=== PATIENT | female | born 1975 | race Two or more races ===

== ENCOUNTER 2022-11-03 18:06 | Emergency (ER) | payer OTHER ==
[~2022-11-03] VITALS: Ht 165.1 cm; Wt 84.8 kg
[2022-11-03] MEDS ORDERED: METFORMIN HCL1000 M2 PO (18:41)
[2022-11-03] MEDS ORDERED: GLIMEPIRIDE1 MG PO (18:41)
[2022-11-03] MEDS ORDERED: ZESTRIL20 MG PO (18:42)
[2022-11-03] MEDS ORDERED: LIPITOR20 MG PO (18:42)
[2022-11-03] MEDS ORDERED: NAPROXEN500 MG PO (22:45)
[2022-11-03] MEDS ORDERED: BACTRIM DS TAB1 EACH PO (22:45)
== END 2022-11-03 23:01 | disposition home or self-care (01) ==
LOC: ER 18:06
PROVIDERS: General Practice
DX: R10.9 Unspecified abdominal pain (principal); E11.9 Type 2 diabetes mellitus without complications; Z79.84 Long term (current) use of oral hypoglycemic drugs; I10 Essential (primary) hypertension; N39.0 Urinary tract infection, site not specified; N20.0 Calculus of kidney

== ENCOUNTER 2024-03-01 08:40 | Emergency (ER) | payer OTHER ==
[~2024-03-01] VITALS: Ht 157.5 cm; Wt 77.1 kg
[~2024-03-01 08:40] MED LIST: BACTRIM DS TAB1 EACH PO; GLIMEPIRIDE1 MG PO; LIPITOR20 MG PO; METFORMIN HCL1000 M2 PO; NAPROXEN500 MG PO; ZESTRIL20 MG PO
[2024-03-01 08:50] VITALS: BP 150/90; O2SAT 100
[2024-03-01] MEDS ORDERED: HYDRALAZINE HCL10 MG (08:56)
[2024-03-01] MEDS ORDERED: ONDANSETRON HCL 2 MG/ML VIAL IV STA (09:17)
[2024-03-01] MEDS ORDERED: 0.9 % SODIUM CHLORIDE 1,000 ML IV STA (09:21)
[2024-03-01] MEDS ORDERED: FAMOtidine 10 MG/ML (4ML VIAL) IV STA (09:21)
[2024-03-01] MEDS ORDERED: ONDANSETRON HCL 2 MG/ML VIAL ONE (09:33)
[2024-03-01] MEDS ORDERED: FAMOTIDINE/PF 20 MG/2 ML VIAL ONE (09:33)
[2024-03-01 09:54] LABS: HEMOGLOBIN 11.6 g/dL (12.0-15.00); MEAN CELL VOLUME 90.2 fL (80.00-100.00); MEAN CORPUSCULAR HEMOGLOBIN 30.7 pg (27.00-32.0); PLATELET COUNT 206 K/uL (150-450); RED BLOOD COUNT 3.77 M/uL (4.00-6.00); RED CELL DISTRIBUTION WIDTH 13.4 % (11.5-14.5)
[2024-03-01 10:23] LABS: ALBUMIN 4.1 gm/dL (3.4-5.0); BILIRUBIN TOTAL 0.51 mg/dL (0.3-1.2); BILIRUBIN,CONJUGATED 0.14 mg/dL (0.0-0.2); BILIRUBIN,UNCONJUGATED 0.37 mg/dL (0.0-0.6); CALCIUM 9.7 mg/dL (8.5-10.1); CREATININE SERUM 1.17 mg/dL (0.55-1.02); GFR 49.16; POTASSIUM 4.17 mEq/L (3.5-5.1); TOTAL PROTEIN 8.2 gm/dL (6.4-8.2)
[2024-03-01 15:33] LABS: PH,URINE 5.5 (5.0-8.0); URINE APPEARANCE Cloudy; URINE BILIRRUBIN Negative (NEGATIVE); URINE BLOOD Negative; URINE COLOR Yellow; URINE GLUCOSE Negative (NEGATIVE); URINE KETONE 15 (NEGATIVE); URINE LEUKOCYTE Trace; URINE NITRATE Negative; URINE PROTEIN 30 (NEGATIVE); URINE UROBILINOGEN 0.2 E.U./dl
[2024-03-01 15:36] LABS: URINE BACTERIA 7163.7 uL (0.0-1933); URINE EPITHELIAL CELLS 120.4 uL (0.0-38.8); URINE RBC 7.2 uL (0.0-20.8); URINE WBC 97.2 uL (0.0-23.2)
[2024-03-01 15:58] LABS: URINE CAST 0.58 uL (0.0-1.40)
[2024-03-01 15:59] LABS: URINE CRYSTALS MANY /HPF; URINE MUCUS SCANT
[2024-03-01] MEDS ORDERED: CEFTRIAXONE SODIUM 1,000 MG VIAL IV STA (16:05)
[2024-03-01] MEDS ORDERED: DICYCLOMINE HCL 20 MG TABLET PO ONE (16:45)
[2024-03-01] MEDS ORDERED: KETOROLAC TROMETHAMINE 60 MG VIAL IM ONE ×2 (16:45→17:27)
[2024-03-01] MEDS ORDERED: CEFTRIAXONE SODIUM 1,000 MG VIAL ONE (17:27)
[2024-03-01] MEDS ORDERED: DICYCLOMINE HCL 10 MG CAPSULE PO ONE (17:27)
[2024-03-01] MEDS ORDERED: PEPCID AC20 MG PO (20:45)
[2024-03-01] MEDS ORDERED: ZOFRAN8 MG PO (20:45)
[2024-03-01] MEDS ORDERED: BACTRIM DS TAB1 EACH PO (20:45)
[2024-03-01] MEDS ORDERED: DOLOGESIC-DF 51 EACH PO (20:45)
[2024-03-01] MEDS ORDERED: TAMS0.4C PO (20:45)
== END 2024-03-01 21:54 | disposition home or self-care (01) ==
LOC: ER 08:42
PROVIDERS: General Practice
DX: R11.10 Vomiting, unspecified (principal); E86.0 Dehydration; I10 Essential (primary) hypertension; E11.9 Type 2 diabetes mellitus without complications; Z79.84 Long term (current) use of oral hypoglycemic drugs

== ENCOUNTER 2024-06-24 09:32 | Emergency (ER) | payer OTHER ==
[~2024-06-24 09:32] MED LIST changes: +DOLOGESIC-DF 51 EACH PO; +HYDRALAZINE HCL10 MG; +PEPCID AC20 MG PO; +TAMS0.4C PO; +ZOFRAN8 MG PO
[2024-06-24] MEDS ORDERED: FAMOTIDINE/PF 20 MG/2 ML VIAL IV ONE (11:30)
[2024-06-24] MEDS ORDERED: 0.9 % SODIUM CHLORIDE 1,000 ML IV SCH (11:45)
[2024-06-24] MEDS ORDERED: FAMOTIDINE/PF 20 MG/2 ML VIAL ONE (12:01)
[2024-06-24 13:10] LABS: HEMATOCRIT 35.5 % (36.0-45.00); HEMOGLOBIN 12.1 g/dL (12.0-15.00); MEAN CELL VOLUME 90.4 fL (80.00-100.00); MEAN CORPUSCULAR HEMOGLOBIN 30.9 pg (27.00-32.0); MEAN CORPUSCULAR HGB CONC 34.2 g/dl (32.0-36.0); PLATELET COUNT 210 K/uL (150-450); RED BLOOD COUNT 3.93 M/uL (4.00-6.00); RED CELL DISTRIBUTION WIDTH 13.3 % (11.5-14.5)
[2024-06-24 14:05] LABS: PH,URINE 6.5 (5.0-8.0); URINE APPEARANCE Clear; URINE BILIRRUBIN Negative (NEGATIVE); URINE BLOOD Negative; URINE COLOR Yellow; URINE GLUCOSE Negative (NEGATIVE); URINE KETONE Negative (NEGATIVE); URINE LEUKOCYTE Trace; URINE NITRATE Negative; URINE PROTEIN Negative (NEGATIVE); URINE UROBILINOGEN 0.2 E.U./dl
[2024-06-24 14:10] LABS: CREATININE SERUM 0.75 mg/dL (0.55-1.02); GFR 82.13; POTASSIUM 5.03 mEq/L (3.5-5.1)
[2024-06-24 14:10] LABS: URINE BACTERIA 830.8 uL (0.0-1933); URINE EPITHELIAL CELLS 6.8 uL (0.0-38.8); URINE RBC 2.5 uL (0.0-20.8); URINE WBC 42.7 uL (0.0-23.2)
[2024-06-24 14:18] LABS: URINE CAST 0.14 uL (0.0-1.40)
== END 2024-06-24 14:56 | disposition home or self-care (01) ==
LOC: ER 09:33
PROVIDERS: Emergency Medicine
DX: K29.70 Gastritis, unspecified, without bleeding (principal)